=== PATIENT | female | born 2000 | race African-American/Black ===

== ENCOUNTER 2025-01-06 16:50 | Emergency (ER) | payer MEDICARE, SELFPAY ==
[2025-01-06 16:59] VITALS: BP 111/79; PULSE 99; RESP 20; TEMP 36.6; O2SAT 98; BMI 22.3
--- NOTE | 2025-01-06 17:08 | ED.GENADULT ---
HPI - General Adult General Chief complaint: Nausea/Vomiting Stated complaint: vomiting, nausea, was drinking last night Time Seen by Provider: 01/06/25 17:02 Source: patient Mode of arrival: ambulatory Limitations: no limitations History of Present Illness HPI narrative: 24-year-old female presenting today with nausea vomiting since this morning. Patient states that she did go drinking last night and have 3 shots [place]. She woke up feeling very nauseated this morning has been vomiting all day. No blood in her vomit. No diarrhea. She has abdominal cramping, no sharp pain. No difficulty with urination, has urinated less than usual. She denies fevers. She feels hungry and wants to eat but every time she puts anything close to her mouth, she vomits. Generally healthy. Does not take any medications. No known drug allergies. Related Data Home Medications ?Medication ?Instructions ?Recorded ?Confirmed No Known Home Medications 01/06/25 01/06/25 Allergies Allergy/AdvReac Type Severity Reaction Status Date / Time No Known Drug Allergies Allergy Verified 01/06/25 17:03 Review of Systems Status of ROS: Reports: 10 or more systems reviewed and unremarkable except as noted in History and below Exam Narrative: Exam Narrative: Well-nourished well-developed patient in no acute distress. Alert and oriented. Answers questions appropriately. Mood and affect are appropriate. Thoughts are goal oriented and rational. No tangential or magical thinking noted. Patient speaks in full sentences without needing to catch her breath. HEENT: Normocephalic atraumatic. Pupils are equally round reactive to light. Extraocular muscles are intact. Conjunctivae are moist without any icterus noted. Moist mucous membranes. Posterior pharynx is normal. Cardiovascular: Heart is regular rate and rhythm S1 and S2 are present without any murmurs. Lungs: Clear to auscultation bilaterally no wheezes rhonchi or rales are appreciated. Patient takes deep breaths without any discomfort. Abdomen: Soft and nontender nondistended with normal bowel sounds. No guarding or rebound. Skin: Well perfused without any obvious rashes. Const: Vital Signs, click to edit/add: Vital Signs - 24 hr 01/06/25 16:59 Temperature 97.8 F Pulse Rate [Pulse Oximeter] 99 Respiratory Rate 20 Blood Pressure [Ri ght Upper Arm] 111/79 Pulse Oximetry 98 Oxygen Delivery Me thod Room Air Course Course ED Course: IV established and patient given a L of normal saline and IV Zofran. Patient felt better after treatment. Not have any more episodes of vomiting. Vital Signs Vital signs: Initial Vital Signs Temperature 97.8 F 01/06/25 16:59 Temperature Source Temporal Artery Scan 01/06/25 16:59 Pulse Rate 99 01/06/25 16:59 Pulse Rhythm Regular 01/06/25 16:59 Respiratory Rate 20 01/06/25 16:59 Blood Pressure 111/79 01/06/25 16:59 Blood Pressure Mean 89 01/06/25 16:59 Blood Pressure Position Sitting 01/06/25 16:59 Pulse Oximetry 98 01/06/25 16:59 Oxygen Delivery Method Room Air 01/06/25 16:59 Vital Signs Temperature 97.8 F 01/06/25 16:59 Pulse Rate 99 01/06/25 16:59 Respiratory Rate 20 01/06/25 16:59 Blood Pressure 111/79 01/06/25 16:59 Pulse Oximetry 98 01/06/25 16:59 Oxygen Delivery Method Room Air 01/06/25 16:59 Temperature 97.8 F 01/06/25 16:59 Pulse Rate 99 01/06/25 16:59 Respiratory Rate 20 01/06/25 16:59 Blood Pressure 111/79 01/06/25 16:59 Pulse Oximetry 98 01/06/25 16:59 Oxygen Delivery Method Room Air 01/06/25 16:59 Medications Administered Medications: Discontinued Medications Generic Name Dose Route Start Last Admin Trade Name Freq PRN Reason Stop Dose Admin Sodium Chloride 1,000 mls @ 1,000 mls/hr 01/06/25 17:15 01/06/25 17:16 0.9 % Sodium Chloride 1000 Ml IV 01/06/25 18:14 1,000 mls/hr .Q1H CHE Administration Ondansetron HCl 4 mg 01/06/25 17:04 01/06/25 17:16 Ondansetron 2 Mg/Ml Inj IVP 01/06/25 17:05 4 mg ONCE ONE Administration Medical Decision Making MDM Narrative Medical decision making narrative: 24-year-old female presenting with vesalgia. Better after treatment. Discharge Plan Discharge Clinical Impression: Vomiting Patient Disposition: Home, Self-Care Condition: Stable Additional Instructions: Do your best to stay well hydrated by drinking small amounts of fluid frequently throughout the evening. Recommend abstaining from alcohol use. Prescriptions: No Action No Known Home Medications Stand Alone Forms: [employer] Info Instructions
[2025-01-06] MEDS: ONDANSETRON 2 MG/ML inj 4 MG IVP (17:16)
--- OUTSIDE RECORDS SUMMARY | 2025-01-06 17:45 | XMS_ITS | Encounter Summary ---
Author Organization [employer] Address [address] [place] [address] Care Team Providers Care Hide Measuring Machine Operator Name Role Phone Unknown, Provider Primary Care Provider Unavaila Makayla Jaimes MD Primary Care Provider U Ana Cristina Woodall MD Primary Care Provider Simona Hinojosa MD Primary Care Prov ider Unknown, Provider Unavailable Unavailable Encounter Details Date Type Department Care Team (Late st Contact Info) Description 11/12/2013 Historical Conversion [facility] [address] [facility] [place] [place] [phone] Makayla Buckner MD Social History Tobacco Use Types Packs/Day Years Used Date Smoking Tobacco: Never Assessed Comments Unknown Sex and Gender Information Value Date Recorded Sex Assigned at Not on file Legal Sex Female 4:10 PM OVEN LABORER Gender Identity Not on file Sexual Orientation Not on file documented as of this encounter Progress Notes * Makayla Buckner MD - 11/12/2013 12:00 AM CDT Chief Complaint/Reason for Visit Well adolescent visit. HISTORY OF PRESENT ILLNESS: Jodie is a 13-year-old who is brought to clinic today by her mom for a well adolescent visit. Mom tells me that things are going well. Mom tells me that Jodie is tired allthe time and she thinks she is too skinny. Mom also reports that Jodie's hair falls out and her skin is dry. Mom would like me to check her vitamin D level, an H- Pylori test, and a tuberculosis test. Jodie denies any heat or cold intolerance. Mom tells me that Jodie complains of nausea and abdominal pain. Jodie tells me she started her menstrual cycle in the middle of August. She tells me that she thinks her periods are regular. I explained to mom that hair loss, poor appetite, and dry skin can be related to thyroid problems. Mom tells me that often when she calls to get an appointment with me, they tell her I have no openings. I explained to mom that I try to have 30 minutes in the morningand 30 minutes in the afternoon open for same day appointments. Jodie reports that her nasal congestion is better with the nasal spray. I did explain to mom that this is a fairly new thing. Jodie has a lot of cerumen in her ears. I am able to move some of this on the right to visualize the tympanicmembrane. Jodie has pain with palpation in the center of her abdomen. Jodie's growth curve was reviewed. Jodie denies thinking that she weighs too much or is doing anything to lose weight. For further details of the visit, please see the well adolescent form in the patient's chart. MEDICATIONS: Fluticasone Propionate 50 MCG/ACT Nasal Suspension. Use 1 spray in each nostril once daily. Past Medical History 1. History of Abdominal tenderness (789.60) (R10.819) 2. History of Appetite lost (783.0) (R63.0) 3. History of abnormal weight loss (V13.89) (Z87.898) 4. Tension type headache (339.10) (G44.209) Allergies 1. No Known Drug Allergies Social History 1. Never smoked Vitals Vital Signs [Data Includes: Current Encounter] Recorded by : Kate Crespo at [id number] 02:42PM Recorded by : Ellie Caballero at [id number] 02:42PM Blood Pressure 103 / 70 Heart Rate 87 Respiration 12 Temperature 98.1 F Height 159.7 cm 2-20 Stature Percentile 37 % Weight 45.1 kg 2-20 Weight Percentile 19 % BMI Calculated 17.68 BMI Percentile 19 % BSA Calculated 1.43 Vision R20/40 and L20/40 without lenses Hearing Right: Pass ; Left: Pass Assessment 1. Fatigue (780.79) (R53.83) 2. Well child visit (V20.2) (Z00.129) Plan 1. Drawing Fee Status: Complete Done: [id number] 2. H Pylori - Stool Status: Hold For - Manual Activation Requested for: 12Nov2013 3. Administered: HPV (Gardasil) 4. Administered: PPD 5. Renew: Fluticasone Propionate 50 MCG/ACT Nasal Suspension (Flonase 50 MCG/ACT Nasal Suspension); USE 1 SPRAY IN EACH NOSTRIL ONCE DAILY We will check labs today including a Vitamin D level, hemoglobin, thyroid, tuberculosis, and H- pylori test. We will contact the family when we have the results of these labs. Jodie will receive the HPV immunization and possible side effects of this was discussed. I also sent refills of the nasal spray to the pharmacy per the family's request. Jodie failed her vision test and mom says she will make an appointment with an eye doctor. We will plan to see Jodie back for her 14 year well child visit, or sooner if questions or concerns arise. Signatures I, Santos Horn, am serving as a scribe to document services personally performed by Makayla Buckner M.D., F.A.A.P based on my observation and the provider's statements. Electronically signed by : Makayla Buckner M.D.; Nov 22 2013 1:53PM documented in this encounter Miscellaneous Notes * Letter - Makayla Buckner MD - 07/15/2014 12:00 AM CDT I have noticed that the lab work that I had previously ordered for you has yet to be completed. In order to better serve your healthcare needs, I am requesting that you come into our Lab Department within the next two weeks to complete your lab work. If for some reason you are not able to complete your lab work within this time frame or if you have any questions, please give my office a call so we can make other accommodations for you. If you have had this lab work done within the last week, please disregard this letter. You are due for a Vitamin D, total at this time. Please call if you have any questions. Makayla Buckner MD [facility] Electronically signed by:NED HIGHTOWER Jul 15 2014 2:53PM OVEN LABORER * Letter - Makayla Buckner MD - 03/25/2014 12:00 AM CST I have noticed that the lab work that I had previously ordered for you has yet to be completed. In order to better serve your healthcare needs, I am requesting that you come into our Lab Department within the next two weeks to complete your lab work. If for some reason you are not able to complete your lab work within this time frame or if you have any questions, please give my office a call so we can make other accommodations for you. If you have had this lab work done within the last week, please disregard this letter. You are due for a Vit D, total 25OH at this time. Please call if you have any questions. Makayla Buckner MD [facility] Electronically signed by:RUEL GUTIERREZ Mar 25 2014 10:16AM OVEN LABORER * Letter - Makayla Buckner MD - 02/04/2014 12:00 AM CDT I have noticed that the lab work that I had previously ordered for you has yet to be completed. In order to better serve your healthcare needs, I am requesting that you come into our Lab Department within the next two weeks to complete your lab work. If for some reason you are not able to complete your lab work within this time frame or if you have any questions, please give my office a call so we can make other accommodations for you. If you have had this lab work done within the last week, please disregard this letter. You are due for a Vitamin D, total at this time. Please call if you have any questions. Makayla Buckner MD [facility] Electronically signed by:NED HIGHTOWER Feb 04 2014 9:41AM OVEN LABORER documented in this encounter Plan of Treatment Not on file documented as of this encounter Visit Diagnoses Not on filedocumented in this encounter Additional Health Concerns Infection Onset Date Last Indicated Resolved Time COVID-19 Rule Out 09/11/2024 09/11/2024 09/11/2024 9:11 PM CDT documented as of this encounter Care Teams Hide Measuring Machine Operator Relationship Specialty Start Date End Date Unknown, Provider . [place] [id number] PCP - General 12/30/16 09/13/18 Makayla Buckner MD . [place] [id number] PCP - General Pediatrics 09/14/18 12/14/20 Ana Cristina Fuentes MD [address] [place] [address] [address] [place] [id number] PCP - General Family Medicine 12/15/20 11/28/21 Simona Hinojosa MD [address] [facility] [place] [phone] PCP - General Family Medicine 11/29/21 Unknown, Provider . [place] [id number] 09/14/18 documented as of this encounter Additional Source Comments PLEASE NOTE: Replies to this message will not be received.[facility] and [facility]
--- OUTSIDE RECORDS SUMMARY | 2025-01-06 17:45 | XMS_ITS | Referral Summary ---
Author Organization [facility] Address [address] [place] [address] Care Team Providers Care Supervisor Accounting Clerks Name Role Phone Simona Hinojosa MD Primary Care Prov ider Unknown, Provider Unavailable Unavailable Encounters Date Type Department Care Team Description 10/15/2024 Patient Message [facility] [address] [place] [address]. [place], [place] [phone] Michael Rodriguez MD Subj: Checking in from Last 3 Months Allergies No known active allergies Medications naproxen (NAPROSYN) 500 mg oral TabletIndication s:Dental disorder Take 1 tablet twice daily x1 week, then 1 tablet twice daily as needed for pain. 30 Tablet 02/09/2024 Active Active Problems Problem Noted Date Diagnosed Date Seasonal allergies Lactose intolerance Anxiety Immunizations Immunization Administration Dates Next Due DTaP Vac, <7 Yrs, IM (Daptacel,Infanrix,Tripedia) 11/29/2003,07/31/2000,06/25/1999,03/14,01/04/1999 Hemophilus Influenza B - Unspecified 03/14/1999, 01/04/1999 Hepatitis A Vaccine, IM, Ped /Adol (2 doses) 07/24/2010,06/24/2008 Hepatitis B Vaccine - Unspecified 07/31/2000,02/1999,01/04/1999 Hepatitis B Vaccine, IM, Ped /Adol (3 doses) (Recombivax) (Engerix-B) 07/31/2000,03/14/1999,01/04/1999 Human Papilloma Virus Vaccin e(Gardasil 9) 11/06/2017,11/22/2016 Human Papilloma Virus Vaccine(Gardasil) 11/12/2013 Influenza Vac, H1N1 05/11/2009 Influenza Vac, IM, Quadrivalent 02/01/2022,04/17,02/22/2014 Influenza Vac, IM, Quadrival ent Preserv Free, (>6 months) 01/30/2021,04/17/2020,05/02/2019 Influenza Vac, IM, Trivalent (>3 Yrs) 03/18/2012 ,02/28/2010,01/21/2009 Influenza Vac, Intranasal, Quadrivalent (Flumist) 02/12/2013 Influenza Vac, Intranasal, T rivalent (Flumist) 03/18/2011 Influenza Virus Vaccine - Unspecified 04/17/2020 MMR Vaccine (Mumps, Measles, Rubella) SQ 11/29/2003,07/31/2000 Meningococcal B Vac, Recombi nant, OMV, IM (Bexsero) 05/02/2020 Meningococcal Conj Vac,Tetra valent, IM (Menactra) 11/22/2016,07/24/2010 Poliovirus Vaccine, IM or SQ (IPV) 04/17,11/29/2003,07/31/2000,03/14,01/04/1999 SARS-CoV-2, IM (COVID-19)(Pfizer)(Purple Label) 12/27/2020,12/06/2020 Tdap Vaccine, IM, (Adacel)(Boostrix) 11/25/2019, 07/24/2010 Tuberculosis (TB) Intradermal Test 05/08/2021, Typhoid Vaccine, IM (ViCPs)(Typhim ) 7 Varicella Vaccine, SQ (Varivax) 12/19/2010,07/24 Social History Tobacco Use Types Packs/Day Years Used Date Smoking Tobacco: Never Smokeless Tobacco: Never Alcohol Use Standard Drinks/Week Comments Never 0 (1 standard drink = 0.6 oz pur e alcohol) Humiliation, Afraid, Rape, and Kick questionnair e Answer Date Recorded Within the last year, have y ou been afraid of your partner or ex-partner? No 11/29/2021 Within the last year, have y ou been humiliated or emotionally abused in other ways by your partner or ex-partner? No Within the last year, have y ou been kicked, hit, slapped, or otherwise physically hurt by your partner or ex-partner? No 11/29/2021 Within the last year, have y ou been raped or forced to have any kind of sexual activity by your partner or ex-partner? No 11/29/2021 Social Connection and Isolat ion Panel [NHANES] Answer Date Recorded In a typical week, how many times do you talk on the phone with family, friends, or neighbors? More than three times a week 11/29/2021 How often do you get togethe r with friends or relatives? Three times a week 11/29/2021 How often do you attend chur or judaism services? 1 to 4 times per year 11/29/2021 Do you belong to any clubs o r organizations such as nondenominational groups, unions, fraternal or athletic groups, or school groups? Yes 11/29/2021 How often do you attend meet ings of the clubs or organizations you belong to? 1 to 4 times per year 11/29/2021 Are you , , di vorced, , never , or living with a partner? Never 11/29/2021 AUDIT-C Answer Date Recorded Q1: How often do you have a drink containing alcohol? Never 11/29/2021 Q2: How many drinks containi ng alcohol do you have on a typical day when you are drinking? Patient does not drink Q3: How often do you have si x or more drinks on one occasion? Never 11/29/2021 Overall Financial Resource Strain (CARDIA) Answe r Date Recorded How hard is it for you to pa y for the very basics like food, housing, medical care, and heating? Not hard at all 11/29/2021 [facility] [place] [facility] Occupat ional Health - Occupational Stress Questionnaire Answer Date Recorded Do you feel stress - tense, restless, nervous, or anxious, or unable to sleep at night because your mind is troubled all the time - these days? Only a little 11/29/2021 Exercise Vital Sign Answer Date Recorde d On average, how many days pe r week do you engage in moderate to strenuous exercise (like a brisk walk)? 1 day 11/29/2021 On average, how many minutes do you engage in exercise at this level? 20 min 11/29/2021 Hunger Vital Sign Answer Date Recorded Within the past 12 months, y ou worried that your food would run out before you got the money to buy more. Never true 11/30/19 22 Within the past 12 months, t he food you bought just didn't last and you didn't have money to get more. Never true 11/29/2021 PRAPARE - Transportation Answer Date Re corded In the past 12 months, has l ack of transportation kept you from medical appointments or from getting medications? No 11/03 In the past 12 months, has l ack of transportation kept you from meetings, work, or from getting things needed for daily living? No 11/29/2021 Housing Stability Answer Date Recorded In the last 12 months, was t here a time when you were not able to pay the mortgage or rent on time? No 11/29/2021 In the last 12 months, how many places have you lived? 1 11/29/2021 Number of Places Lived in the Last Year (Outpati ent) Not on file 11/29/2021 In the last 12 months, was t here a time when you did not have a steady place to sleep or slept in a care home (including now)? No 11/29/2021 Depression (PHQ-9) Answer Date Recorded Last PHQ-9 Score Not on file 2023 Thoughts of self harm Not at all 2023 Intimate Partner Violence Answer Date R ecorded Are you in a relationship wh ere you are physically hurt, threatened and/or made to feel afraid? No 09/11/2024 Comments No Sex and Gender Information Value Date Recorded Sex Assigned at Not on file Legal Sex Female 4:10 PM PUBLIC RELATIONS COUNSELOR Gender Identity Not on file Sexual Orientation Not on file Last Filed Vital Signs Vital Sign Reading Time Taken Comments Blood Pressure 121/87 09/11/2024 10:00 PM CDT Pulse 90 09/11/2024 10:00 PM CDT Temperature 36.2 C (97.1 F) 09/11/2024 8:27 PM CDT Respiratory Rate 18 09/11/2024 10:00 PM CDT Oxygen Saturation 99% 09/11/2024 10:00 PM CDT Inhaled Oxygen Concentration - - Weight 56.9 kg (125 lb 7.1 oz) 09/11/2024 8:27 P M CDT Height 159.6 cm (5' 2.84) 11/29/2021 11:58 AM C DT Body Mass Index 22.34 11/29/2021 11:58 AM CDT Functional Status * Are you deaf or do you have serious difficulty hearing? Answer Date of Assessment Author No 05/02/2019 5:42 PM Ciaran Ya RN * Are you blind or do you have serious difficulty seeing, even when wearing glasses? Answer Date of Assessment Author No 05/02/2019 5:42 PM Ciaran Ya RN * Do you have serious difficulty walking or climbing stairs? Answer Date of Assessment Author No 05/02/2019 5:42 PM Ciaran Ya RN * Do you have difficulty dressing or bathing? Answer Date of Assessment Author No 05/02/2019 5:42 PM Ciaran Ya RN * Do you have difficulty doing errands alone such as visiting a doctor's office or shopping because of a physical, mental, or emotional condition? Answer Date of Assessment Author No 05/02/2019 5:42 PM Ciaran Ya RN Mental Status * Do you have trouble concentrating, remembering, or making decisions because of a physical, mental, or emotional condition? Answer Entry Date Author No 05/02/2019 5:42 PM Ciaran Ya RN Plan of Treatment Not on file Procedures Procedure Name Priority Date/Time Associated Diagnosis Comments HIV-1 AND HIV-2 AG AND AB Routine 05/02/2020 4:01 PM PUBLIC RELATIONS COUNSELOR Routine history and physical examination of adult from Last 3 Months or Most Recently Relevant to Health Maintenance Results * HIV-1 AND HIV-2 AG AND AB (05/02/2020 4:01 PM PUBLIC RELATIONS COUNSELOR) HIV 1/2 Ab/Ag Nonreactive Nonreactive 0 4:48 [address] [facility] Comment:No laboratory eviden ce of HIV infection. If acute HIV infection is suspected consider testing for HIV-1 RNA. Blood VENOUS BLOOD SPECIMEN / Unknown Venipuncture / Unknown 05/02/2020 4:01 PM PUBLIC RELATIONS COUNSELOR 05/02/2020 4:02 PM PUBLIC RELATIONS COUNSELOR Makayla Buckner MD LAB SEROLOGY ORDERABLES Final Result [facility] [address] [id number], [place] [phone] from Last 3 Months or Most Recently Relevant to Health Maintenance Insurance [place] [address] Care Teams Supervisor Accounting Clerks Relationship Specialty Start Date End Date Simona Hinojosa MD [address] [place] [id number] PCP - General Family Medicine 11/29/21 Unknown, Provider . [place] [id number] 09/14/18 Additional Source Comments PLEASE NOTE: Replies to this message will not be received.[facility] and [facility]
--- OUTSIDE RECORDS SUMMARY | 2025-01-06 17:45 | XMS_ITS | Encounter Summary ---
Author Organization [employer] Address [address] [place] [address] Care Team Providers Care Coating Line Worker Name Role Phone Unknown, Provider Primary Care Provider UnavailMakayla Staley MD Primary Care Provider U Ana Cristina Woodall MD Primary Care Provider Simona Hinojosa MD Primary Care Prov ider Unknown, Provider Unavailable Unavailable Encounter Details Date Type Department Care Team (Late st Contact Info) Description 05/03/2018 Historical Conversion [facility] Family Medicine [address] [place] [address]. [facility] [place], [place] [phone] Lance Grullon MD Social History Tobacco Use Types Packs/Day Years Used Date Smoking Tobacco: Never Assessed Comments Unknown Sex and Gender Information Value Date Recorded Sex Assigned at Not on file Legal Sex Female 4:10 PM DOLL EYE SETTER Gender Identity Not on file Sexual Orientation Not on file documented as of this encounter Last Filed Vital Signs Vital Sign Reading Time Taken Comments Blood Pressure 133/98 05/03/2018 12:00 AM DOLL EYE SETTER Pulse - - Temperature - - Respiratory Rate - - Oxygen Saturation - - Inhaled Oxygen Concentration - - Weight 46 kg (101 lb 6.6 oz) 05/03/2018 12:00 AM DOLL EYE SETTER Height - - Body Mass Index 17.83 11/06/2017 12:00 AM CDT documented in this encounter Progress Notes * Lance Grullon MD - 05/03/2018 12:00 AM CST URGENT CARE ZHAO MYERS : 2000 HX: [id number] DOS: 05/03/2018 SUBJECTIVE: This is a 17-year-old female who presents to the Urgent Care clinic for an earache. Herright ear has been hurting for the last two days. No discharge or drainage. No symptoms in the leftear. No fevers, cough, nasal congestion or sore throat. OBJECTIVE: Vital Signs: Vital signs reviewed in Allscripts. Please see vitals tab for details. Stable. Patientis afebrile. General: The patient is alert, awake and oriented x three. No acute distress. HEENT: Head: Normocephalic and atraumatic. Eyes: PERRLA. EOMI x two. Ears: Tympanic membranes are bills and flat. The right external canal is erythematous. Oropharynx: Clear. Respiratory: Clear to auscultation bilaterally. ASSESSMENT: 1. Right acute otitis externa. PLAN: 1. Floxin Otic drops 10 drops twice a day for seven days. 2. Follow up with primary p.r.n. Lance Grullon M.D./[id number] Electronically signed by:Lance Grullon M.D. May 06 2018 8:16PM DOLL EYE SETTER Author documented in this encounter Plan of Treatment Not on file documented as of this encounter Visit Diagnoses Not on filedocumented in this encounter Additional Health Concerns Infection Onset Date Last Indicated Resolved Time COVID-19 Rule Out 09/11/2024 09/11/2024 09/11/2024 9:11 PM CDT documented as of this encounter Care Teams Coating Line Worker Relationship Specialty Start Date End Date Unknown, Provider . [place] [address] PCP - General 12/30/16 09/13/18 Makayla Buckner MD . [place] [address] PCP - General Pediatrics 09/14/18 12/14/20 Ana Cristina Fuentes MD [address] [place] [address] 1 [facility] [phone] PCP - General Family Medicine 12/15/20 11/28/21 Simona Hinojosa MD [address] [facility] [phone] PCP - General Family Medicine 11/29/21 Unknown, Provider . [place] [address] 09/14/18 documented as of this encounter Additional Source Comments PLEASE NOTE: Replies to this message will not be received.[facility] and [facility]
--- OUTSIDE RECORDS SUMMARY | 2025-01-06 17:45 | XMS_ITS | Encounter Summary ---
Author Organization [employer] Address [address] [place] [address] Care Team Providers Care Gis Software Engineer Name Role Phone Unknown, Provider Primary Care Provider UnavailMakayla Staley MD Primary Care Provider U Ana Cristina Woodall MD Primary Care Provider Simona Hinojosa MD Primary Care Prov ider Unknown, Provider Unavailable Unavailable Encounter Details Date Type Department Care Team (Late st Contact Info) Description 12/09/2013 Historical Conversion [facility] Family Medicine [address] [place] [address]. [facility] [place], [place] [phone] Tashi Woodson MD Social History Tobacco Use Types Packs/Day Years Used Date Smoking Tobacco: Never Assessed Comments Unknown Sex and Gender Information Value Date Recorded Sex Assigned at Not on file Legal Sex Female 4:10 PM MANAGEMENT DEVELOPMENT SPECIALIST Gender Identity Not on file Sexual Orientation Not on file documented as of this encounter Last Filed Vital Signs Vital Sign Reading Time Taken Comments Blood Pressure 109/74 12/09/2013 12:00 AM CDT Pulse - - Temperature - - Respiratory Rate - - Oxygen Saturation - - Inhaled Oxygen Concentration - - Weight 45.8 kg (100 lb 15.9 oz) 014 12:00 AM CDT Height 159.4 cm (5' 2.75) 12/09/2013 1 2:00 AM CDT Body Mass Index 18.03 12/09/2013 12:00 AM CDT Body Mass Index Percentile 22.72% 12/09 12:00 AM CDT Growth Chart: [facility] (Girls, 2- 20 Years) documented in this encounter Progress Notes * Tashi Woodson MD - 12/09/2013 12:00 AM CDT URGENT CARE ZHAO MYERS : 2000 HX: [id number] DOS: 12/09/2013 Patient seen in Urgent Care with a lot of nasal congestion and stuffiness. She states she has had some postnasal drainage. Nose discharge has been progressively green also. She comes in to Urgent Care for evaluation. PAST MEDICAL HISTORY: No medication allergies. REVIEW OF SYSTEMS: Positive for congestion and stuffiness. Negative for any fever, chills, or cough. EXAMINATION: Vital signs reviewed in Allscripts. Please see vitals tab for details. Afebrile. Thereis a lot of nasal congestion. There is some mucopurulence. TM's look fairly normal. Neck is supple and lungs are clear. ASSESSMENT: Sinusitis with rhinitis. PLAN: Put on a course of Amoxicillin and also given some Flonase and Krista to use for her allergies. She will be rechecked as needed. TASHI WOODSON M.D./[facility] 09 Electronically signed by:TASHI WOODSON M.D. Dec 14 2013 11:14AM MANAGEMENT DEVELOPMENT SPECIALIST documented in this encounter Plan of Treatment Not on file documented as of this encounter Visit Diagnoses Not on filedocumented in this encounter Additional Health Concerns Infection Onset Date Last Indicated Resolved Time COVID-19 Rule Out 09/11/2024 09/11/2024 09/11/2024 9:11 PM CDT documented as of this encounter Care Teams Gis Software Engineer Relationship Specialty Start Date End Date Unknown, Provider . [place] [address] PCP - General 12/30/16 09/13/18 Makayla Buckner MD . [place] [address] PCP - General Pediatrics 09/14/18 12/14/20 Ana Cristina Fuentes MD [address] [place] [address] [address] [facility] [phone] PCP - General Family Medicine 12/15/20 11/28/21 Simona Hinojosa MD [address] [facility] [phone] PCP - General Family Medicine 11/29/21 Unknown, Provider . [place] [address] 09/14/18 documented as of this encounter Additional Source Comments PLEASE NOTE: Replies to this message will not be received.[facility] and [facility]
--- OUTSIDE RECORDS SUMMARY | 2025-01-06 17:45 | XMS_ITS | Encounter Summary ---
Author Organization [employer] Address [address] [place] [address] Care Team Providers Care Media Relations Specialist Name Role Phone Unknown, Provider Primary Care Provider UnavailMakayla Staley MD Primary Care Provider U Ana Cristina Woodall MD Primary Care Provider Simona Hinojosa MD Primary Care Prov ider Unknown, Provider Unavailable Unavailable Encounter Details Date Type Department Care Team (Late st Contact Info) Description 09/18/2017 Historical Conversion [facility] Family Medicine [address] [facility] [place] [place], [place] [phone] Carmelita Sin, UTILITY AGENT,FORMULA CHECKER [address] [place] [phone] Social History Tobacco Use Types Packs/Day Years Used Date Smoking Tobacco: Never Assessed Comments Unknown Sex and Gender Information Value Date Recorded Sex Assigned at Not on file Legal Sex Female 4:10 PM CLIENT DELIVERY SPECIALIST Gender Identity Not on file Sexual Orientation Not on file documented as of this encounter Last Filed Vital Signs Vital Sign Reading Time Taken Comments Blood Pressure 109/77 09/18/2017 12:00 AM CDT Pulse - - Temperature - - Respiratory Rate - - Oxygen Saturation - - Inhaled Oxygen Concentration - - Weight 47.3 kg (104 lb 2.7 oz) 09/19/19 12:00 AM CDT Height - - Body Mass Index 18.12 07/10/2017 12:00 AM CLIENT DELIVERY SPECIALIST Body Mass Index Percentile 7.73% 09/18 12:00 AM CDT Growth Chart: [facility] (Girls, 2- 20 Years) documented in this encounter Progress Notes * Carmelita Hunter - 09/18/2017 12:00 AM CDT URGENT CARE ZHAO MYERS : 2000 HX: [id number] DOS: 09/18/2017 16 year old female patient of Dr. Buckner who presents to today with chief complaint of some epigastric discomfort, decline in appetite, nausea over the last several days. Patient notes no constipation, diarrhea, blood in the stool, black tarry stools. No fever, chills, malaise, diaphoresis. She has not utilized any over the counter medications or home remedies for relief of symptoms. Allergies: NKDA SOCIAL HISTORY: Non-smoker. Objective: Vital signs reviewed in Allscripts. Please see vital tab for details. Weight 47. BP 109/77. Pulse, 100. Respirations, 16. Temp 98.6. O2 100% on RA. Pleasant, cooperative female, appears in no acute distress. She is alert and oriented. Head is atraumatic, normocephalic. Eyes, lids, sclera, conjunctiva appears normal limits. Oropharynx, pink and moist. Neck, supple without lymphadenopathy. Chest is clear to auscultation, anterior and posterior bi laterally. Cardiovascular, regular rhythm, normal rate, normal S1 S2. Abdomen, soft, she has epigastric discomfort without organomegaly, masses, rebound, or guarding. Bowel sounds present x4. H pylori breath test is positive. ASSESSMENT: 1. Helicobacter pylori PLAN: Patient is given Prevpac. Encouraged to complete full medication to ensure resolution. Advise if symptoms worsen, do not resolve, or new symptoms arise she is to seek medical care. She verbalized understanding and agreement with plan. Carmelita Hunter RN, FORMULA CHECKER/akg-18 Electronically signed by:Carmelita Hunter RN,FORMULA CHECKER, Sep 22 2017 7:24AM CLIENT DELIVERY SPECIALIST * Carmelita Sin, UTILITY AGENT,FORMULA CHECKER - 09/18/2017 12:00 AM CDT URGENT CARE ZHAO MYRES : 2000 HX: [id number] DOS: 09/18/2017 16 year old female patient of Dr. Buckner who presents to today with chief complaint of some epigastric discomfort, decline in appetite, nausea over the last several days. Patient notes no constipation, diarrhea, blood in the stool, black tarry stools. No fever, chills, malaise, diaphoresis. She has not utilized any over the counter medications or home remedies for relief of symptoms. Allergies: NKDA SOCIAL HISTORY: Non-smoker. Objective: Vital signs reviewed in Allscripts. Please see vital tab for details. Weight 47. BP 109/77. Pulse, 100. Respirations, 16. Temp 98.6. O2 100% on RA. Pleasant, cooperative female, appears in no acute distress. She is alert and oriented. Head is atraumatic, normocephalic. Eyes, lids, sclera, conjunctiva appears normal limits. Oropharynx, pink and moist. Neck, supple without lymphadenopathy. Chest is clear to auscultation, anterior and posterior bi laterally. Cardiovascular, regular rhythm, normal rate, normal S1 S2. Abdomen, soft, she has epigastric discomfort without organomegaly, masses, rebound, or guarding. Bowel sounds present x4. H pylori breath test is positive. ASSESSMENT: 1. Helicobacter pylori PLAN: Patient is given Prevpac. Encouraged to complete full medication to ensure resolution. Advise if symptoms worsen, do not resolve, or new symptoms arise she is to seek medical care. She verbalized understanding and agreement with plan. Carmelita Hunter RN, FORMULA CHECKER/akg-18 Electronically signed by:Carmelita Hunter RN,FORMULA CHECKER, Sep 22 2017 7:24AM CLIENT DELIVERY SPECIALIST Electronically signed by:Jaswinder Sanchez M.D. Sep 29 2018 10:30PM CLIENT DELIVERY SPECIALIST documented in this encounter Plan of Treatment Not on file documented as of this encounter Visit Diagnoses Not on filedocumented in this encounter Additional Health Concerns Infection Onset Date Last Indicated Resolved Time COVID-19 Rule Out 09/11/2024 09/11/2024 09/11/2024 9:11 PM CDT documented as of this encounter Care Teams Media Relations Specialist Relationship Specialty Start Date End Date Unknown, Provider . [place] [id number] PCP - General 12/30/16 09/13/18 Makayla Buckner MD . [place] [address] PCP - General Pediatrics 09/14/18 12/14/20 Ana Cristina Fuentes MD [address] [place] [address] [address] [facility] [phone] PCP - General Family Medicine 12/15/20 11/28/21 Simona Hinojosa MD [address] [place] [address] [facility] [phone] PCP - General Family Medicine 11/29/21 Unknown, Provider . [place] [address] 09/14/18 documented as of this encounter Additional Source Comments PLEASE NOTE: Replies to this message will not be received.[facility] and [facility]
--- OUTSIDE RECORDS SUMMARY | 2025-01-06 17:45 | XMS_ITS | Encounter Summary ---
Author Organization [employer] Address [address] [place] [address] Care Team Providers Care Control Clerk Auditing Name Role Phone Unknown, Provider Primary Care Provider Unavaila Makayla Jaimes MD Primary Care Provider U Ana Cristina Woodall MD Primary Care Provider Simona Hinojosa MD Primary Care Prov ider Unknown, Provider Unavailable Unavailable Encounter Details Date Type Department Care Team (Late st Contact Info) Description 07/10/2017 Historical Conversion [facility] Family Medicine [address] [place] [address]. [facility] [place], [place] [phone] Makayla Buckner MD Social History Tobacco Use Types Packs/Day Years Used Date Smoking Tobacco: Never Assessed Comments Unknown Sex and Gender Information Value Date Recorded Sex Assigned at Not on file Legal Sex Female 4:10 PM PARENTING SKILLS INSTRUCTOR Gender Identity Not on file Sexual Orientation Not on file documented as of this encounter Progress Notes * Makayla Buckner MD - 07/10/2017 12:00 AM CST Assessment 1. Lactose intolerance (271.3) (E73.9) Plan We will send a prescription for lactase. Soy milk would be an option. She should continue to take calcium and vitamin D, continue with calcium rich foods. Plan Orders Lactose intolerance Lactase Fast Acting 9000 UNIT Oral Tablet; TAKE 1 TABLET WITH FIRST BITE OF DAIRY FOOD Unlinked Fluticasone Propionate 50 MCG/ACT Nasal Suspension (Flonase) Multi-Vitamin/Iron Oral Tablet Vitron-C 65-125 MG Oral Tablet Counseling Total time of encounter was 15 minutes and 15 minutes was spent counseling and coordination of care. Reason For Visit Lactose intolerant History of Present Illness Jodie is an 16-year-old female who presents with questions regarding her lactose intolerance. She was diagnosed with lactose intolerance in December 2016. She is currently a college student. She likes being away at school, but she talks to her mom almost every day. She lives on campus in the dorm. She does have a fridge in her dorm room. She does eat at school, but Jodie says she does not eat a lotbecause she does not feel she has a lot of options being lactose intolerant. She did try some Lactaid pills. She felt they worked initially, but did not continue to. She only took one pill at a time.Her mom wanted her to ask again about Lactaid pills and her options. has tried eating some lactose, but that does not go so well. Cheese bothers her. She eats salads. takes vitamin D. She has seen a dietitian who suggested fruits and vegetables that contain calcium. has otherwise been well. Current Meds 1. Alyacen 1-35 MG-MCG Oral Tablet; TAKE ONE TABLET BY MOUTH EVERY DAY DIRECTED; Therapy: 50Isv0011 to (Last Rx:[id number]) Requested for: 51Ifh1133 Ordered 2. Fluticasone Propionate 50 MCG/ACT Nasal Suspension; USE 2 SPRAYS IN EACH NOSTRIL ONCE DAILY; Therapy: 21Geb5214 to (Last Rx:25Mar2017) Requested for: 25Mar2017 Ordered 3. Multi-Vitamin/Iron Oral Tablet; TAKE 1 TABLET ONCE DAILY; Therapy: 66Zdr4656 to (Evaluate:07Sep2016) Requested for: 54Bkr5287; Last Rx:[id number] Ordered 4. Vitamin D (Ergocalciferol) 06904 UNIT Oral Capsule; TAKE ONE CAPSULE EVERY OTHER WEEK FOR 3 MONTHS; Therapy: 39Ksy7553 to (Evaluate:01Aug2017) Requested for: 09May2017; Last Rx:09May2017 Ordered 5. Vitron-C 65-125 MG Oral Tablet; TAKE 1 TABLET TWICE DAILY; Therapy: 69Frt2726 to (Evaluate:26May2017) Requested for: 55Vfh7880; Last Rx:[id number] Ordered Allergies 1. No Known Drug Allergies Vitals Vital Signs Recorded: 10Jul2017 02:54PM Systolic 117 Diastolic 78 Heart Rate 116 Respiration 20 Temperature 97.9 F Height 161.5 cm Weight 52.8 kg BMI Calculated 20.24 BSA Calculated 1.55 BMI Percentile 34 % 2-20 Stature Percentile 40 % 2-20 Weight Percentile 31 % Signatures Nancie Marie, P.D.S., am serving as a scribe to document services personally performed by Makayla Buckner M.D., F.A.A.P based on my observation and the provider's statements. Electronically signed by : Makayla Buckner M.D.; Jan 22 2018 8:53AM PARENTING SKILLS INSTRUCTOR documented in this encounter Plan of Treatment Not on file documented as of this encounter Visit Diagnoses Not on filedocumented in this encounter Additional Health Concerns Infection Onset Date Last Indicated Resolved Time COVID-19 Rule Out 09/11/2024 09/11/2024 09/11/2024 9:11 PM CDT documented as of this encounter Care Teams Control Clerk Auditing Relationship Specialty Start Date End Date Unknown, Provider . [place] [address] PCP - General 12/30/16 09/13/18 Makayla Buckner MD . [place] [address] PCP - General Pediatrics 09/14/18 12/14/20 Ana Cristina Fuentes MD [address] [facility] [address] [facility] [phone] PCP - General Family Medicine 12/15/20 11/28/21 Simona Hinojosa MD [address] [place] [address] [facility] [phone] PCP - General Family Medicine 11/29/21 Unknown, Provider . [place] [address] 09/14/18 documented as of this encounter Additional Source Comments PLEASE NOTE: Replies to this message will not be received.[facility] and [facility]
--- OUTSIDE RECORDS SUMMARY | 2025-01-06 17:45 | XMS_ITS | Encounter Summary ---
Author Organization [employer] Address [address] [place] [address] Care Team Providers Care Diet Kitchen Cook Name Role Phone Unknown, Provider Primary Care Provider UnavailMakayla Staley MD Primary Care Provider U Ana Cristina Woodall MD Primary Care Provider Simona Hinojosa MD Primary Care Prov ider Unknown, Provider Unavailable Unavailable Encounter Details Date Type Department Care Team (Late st Contact Info) Description 04/17/2017 Historical Conversion [facility] Family Medicine [address] [place] [address]. [place], [place] [phone] Social History Tobacco Use Types Packs/Day Years Used Date Smoking Tobacco: Never Assessed Comments Unknown Sex and Gender Information Value Date Recorded Sex Assigned at Not on file Legal Sex Female 4:10 PM SOCIAL PROFESSIONALS Gender Identity Not on file Sexual Orientation Not on file documented as of this encounter Nursing Notes * [facility], GENERICPROVIDER - 04/17/2017 12:00 AM CST Name: ZHAO MYERS : 2000 DOS: 04/17/2017 This patient will be traveling to [facility]. She states she will be gone for 2 weeks and will also be visiting family. She has completed her hepatitis A, hepatitis B, childhood IPV, varicella, MMR series. She is up-to-date on her Tdap. Last meningitis vaccine was 11/22/16. She has 2 document ed HPV and was instructed that she does need a third, but does not want to get it at this time. Therecommended travel immunizations were given according to CDC guidelines and the patient's health history and travel itinerary. She states she is lactose intolerant. Immunizations given were influenza, Typhium, and IPV. See immunization record in ALLscripts. Immunizations were given per standing orders of Dr. Powers. No malaria medication is needed for this trip. Teaching review/CDC guidelines andrecommendations were given. CDC handouts were provided to the patient. Patient was given documentation of her meningitis and IPV vaccine. Patient tolerated immunizations well. Electronically signed by:Salena Mares RN Apr 17 2017 3:17PM SOCIAL PROFESSIONALS documented in this encounter Plan of Treatment Not on file documented as of this encounter Visit Diagnoses Not on filedocumented in this encounter Additional Health Concerns Infection Onset Date Last Indicated Resolved Time COVID-19 Rule Out 09/11/2024 09/11/2024 09/11/2024 9:11 PM CDT documented as of this encounter Care Teams Diet Kitchen Cook Relationship Specialty Start Date End Date Unknown, Provider . [place] [address] PCP - General 12/30/16 09/13/18 Makayla Buckner MD . [place] [address] PCP - General Pediatrics 09/14/18 12/14/20 Ana Cristina Fuentes MD [address] [place] [address] [address] [facility] [phone] PCP - General Family Medicine 12/15/20 11/28/21 Simona Hinojosa MD [address] [place] [address] [facility] [phone] PCP - General Family Medicine 11/29/21 Unknown, Provider . [place] [facility] [address] 09/14/18 documented as of this encounter Additional Source Comments PLEASE NOTE: Replies to this message will not be received.[facility]
--- OUTSIDE RECORDS SUMMARY | 2025-01-06 17:45 | XMS_ITS | Clinical Summary ---
Author Organization [facility] Address [address] [place] [address] Care Team Providers Care Monitoring And Evaluation Advisor Name Role Phone Simona Hinojosa MD Primary Care Prov ider Unknown, Provider Unavailable Unavailable Allergies No known active allergies Medications naproxen (NAPROSYN) 500 mg oral TabletIndication s:Dental disorder Take 1 tablet twice daily x1 week, then 1 tablet twice daily as needed for pain. 30 Tablet 02/09/2024 Active Active Problems Problem Noted Date Diagnosed Date Seasonal allergies Lactose intolerance Anxiety Encounters Date Type Department Care Team Description 10/15/2024 Patient Message [facility] Family Medicine [address] [facility]. [place] [phone] Michael Rodriguez MD Subj: Checking in from Last 3 Months Immunizations Immunization Administration Dates Next Due DTaP [...] ) 7 Varicella Vaccine, SQ (Varivax) 12/19/2010,07/24 Family History Medical History Relation Name Comments No Known Problems Father No Known Problems Mother Relation Name Status Comments Father Alive Mother Alive Social History Tobacco Use Types Packs/Day Years [...] week 11/29/2021 How often do you attend [facility] or [facility] services? 1 to 4 times per year 11/29/2021 Do you belong to any clubs o r organizations such as religion groups, unions, fraternal or athletic groups, or [...] and heating? Not hard at all 11/29/2021 [facility] [place] [facility] - Occupational Stress [...] money to buy more. Never true 11/30/19 Within the past 12 months, t he [...] place to sleep or slept in a snf (including now)? No 11/29/2021 Depression (PHQ-9) Answer [...] on file Legal Sex Female 4:10 PM ALMOND PASTE MIXER Gender Identity Not on file Sexual Orientation [...] Mass Index 22.34 11/29/2021 11:58 AM CDT Plan of Treatment Health Maintenance Due Date Last Done Comments Depression Screening 2010 Cervical Cancer Screening 11/10/2019 Meningococcal B Vaccines (2 of 2 - Bexsero SCDM 2-dose series) 10/31/2020 05/02/2020 COVID-19 Vaccine (3 - season) 2025 12/27/2020, 12/06/2020 Influenza Vaccine (#1) 2025 2, 01/30/2021, 04/17/2020, Additional history exists DTaP/Tdap/Td Vaccines (8 - Td or Tdap) 11/24/2029 11/25/2019, 07/24/2010, 11/29/2003, Additional history exists Varicella Zoster Sequential (1 of 2) 2048 Respiratory Syncytial Virus (RSV) Vaccine (1 - 1-dose 75+ series) 2073 HIB Vaccines Aged Out 03/14/1999, 01/04/1999 No lo nger eligible based on patient's age to complete this topic Hepatitis B Vaccines Completed 07/31/2000, 07/31/2000, 03/14/1999, Additional history exists Hepatitis A Vaccines Completed 07/24/2010, 06/24/19 09 Meningococcal Vaccines Completed 11/22/2016, 2010 HPV Vaccines Completed 11/06/2017, 11/03, 11/12/2013 HIV Screen Completed 05/02/2020 Hepatitis C Testing Discontinued Pneumococcal Vaccine (0-49 Years) Aged Out No longer eligible based on patient's age to complete this topic Procedures Procedure Name Priority Date/Time Associated Diagnosis Comments HIV-1 AND HIV-2 AG AND AB Routine 05/02/2020 4:01 PM ALMOND PASTE MIXER Routine history and physical examination of adult from Last 3 Months or Most Recently Relevant to Health Maintenance Results * HIV-1 AND HIV-2 AG AND AB (05/02/2020 4:01 PM ALMOND PASTE MIXER) HIV 1/2 Ab/Ag Nonreactive Nonreactive 0 4:48 PM ALMOND PASTE MIXER [facility] Comment:No laboratory eviden ce of HIV infection. If acute HIV infection is suspected consider testing for HIV-1 RNA. Blood VENOUS BLOOD SPECIMEN / Unknown Venipuncture / Unknown 05/02/2020 4:01 PM ALMOND PASTE MIXER 05/02/2020 4:02 PM ALMOND PASTE MIXER us Makayla Buckner MD LAB SEROLOGY ORDERABLES Final Result [facility] [address] [place] [address], from Last 3 Months or Most Recently Relevant to Health Maintenance Insurance [place] [address] * Guarantor: [employer] Account Type Relation to Patient Date of Phone Billing Address Corporate Other [address] [facility] [place] [address] Care Teams Monitoring And Evaluation Advisor Relationship Specialty Start Date End Date Simona Hinojosa MD [address] [place] [id number] PCP - General Family Medicine 11/29/21 Unknown, Provider . [place] [id number] 09/14/18 Additional Source Comments PLEASE NOTE: Replies to this message will not be received.[facility]
--- OUTSIDE RECORDS SUMMARY | 2025-01-06 17:45 | XMS_ITS | Encounter Summary ---
Author Organization [employer] Address [address] [place] [address] Care Team Providers Care Commercial Specialist Name Role Phone Unknown, Provider Primary Care Provider Unavaila Makayla Jaimes MD Primary Care Provider U Ana Cristina Woodall MD Primary Care Provider Simona Hinojosa MD Primary Care Prov ider Unknown, Provider Unavailable Unavailable Encounter Details Date Type Department Care Team (Late st Contact Info) Description 11/22/[address] [facility] Family Medicine [address] [place] [address]. 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 Gender Identity Not on file Sexual Orientation Not on file documented as of this encounter Last Filed Vital Signs Vital Sign Reading Time Taken Comments Blood Pressure 118/81 11/22/2016 12:00 AM CDT Pulse - - Temperature - - Respiratory Rate - - Oxygen Saturation - - Inhaled Oxygen Concentration - - Weight 52.3 kg (115 lb 4.8 oz) 11/23/19 17 12:00 AM CDT Height 162 cm (5' 3.78) 11/22/2016 12: 00 AM CDT Body Mass Index 20.78 12/17/2016 12:00 AM CDT Body Mass Index Percentile 43.20% 12/17 12:00 AM CDT Growth Chart: CDC (Girls, 2- 20 Years) documented in this encounter Progress Notes * Makayla Buckner MD - 12/17/2016 12:00 AM CDT Assessment 1. Abdominal bloating (787.3) (R14.0) Plan Discussed with Zhao that we would like to order tests for Celiac and for lactose intolerance. Advised her to be fasting for the testing. All questions and concerns were addressed. Zhao expressed understanding. Plan Orders Abdominal bloating Drawing Fee; Status:Complete; Done: [id number] Reason For Visit Stomach issues. History of Present Illness Zhao is an 16-year-old female who presents with her sister for evaluation of the above noted issue. Zhao says she feels bloated, and food does not sound good. She feels like she has diarrhea, but that just started. She has not noticed any particular foods causing it. She does burp but only when she is feeling really full. It does not really interfere with her activities. It does not bother her a lot right now, but she is concerned that it might bother her more in the future if it is not addressed now. 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 Current Meds 1. Alyacen 1-35 MG-MCG Oral Tablet; TAKE ONE TABLET BY MOUTH EVERY DAY DIRECTED; Therapy: 52Wfr9059 to (Last Rx:[id number]) Requested for: 67Bkv2801 Ordered 2. Fluticasone Propionate 50 MCG/ACT Nasal Suspension; USE 2 SPRAYS IN EACH NOSTRIL ONCE DAILY; Therapy: 38Vih9613 to (Last Rx:11May2015) Requested for: 11May2015 Ordered 3. Multi-Vitamin/Iron Oral Tablet; TAKE 1 TABLET ONCE DAILY; Therapy: 05Nsi1963 to (Evaluate:80Csm7238) Requested for: 36Xsi3527; Last Rx:[id number] Ordered 4. Vitamin D (Ergocalciferol) 68396 UNIT Oral Capsule; Take one capsule every other week x 3 months; Therapy: 21Neu6684 to (Evaluate:25Feb2017) Requested for: 71Ndv8662; Last Rx:[id number] Ordered 5. Vitron-C 65-125 MG Oral Tablet; TAKE 1 TABLET TWICE DAILY; Therapy: 89Nbr5126 to (Evaluate:26May2017) Requested for: 13Ahq5565; Last Rx:[id number] Ordered Allergies 1. No Known Drug Allergies Vitals Vital Signs Recorded: 21Thw4949 02:42PM Systolic 120 Diastolic 83 Heart Rate 94 Respiration 20 Temperature 98 F Height 160 cm 2-20 Stature Percentile 32 % Weight 53.2 kg 2-20 Weight Percentile 36 % BMI Calculated 20.78 BMI Percentile 43 % BSA Calculated 1.54 Physical Exam GENERAL: Zhao is a pleasant articulate 16-year-old. ABDOMEN:Somewhat bloated, soft, nontender. Signatures I, Ray DesaiS., am serving as a scribe to document services personally performed by Makayla Buckner M.D., F.A.A.P. based on my observation and the provider's statements. Electronically signed by : Makayla Buckner M.D.; Mar 21 2017 4:29PM FILTER CLEANER documented in this encounter H&P Notes * Makayla Buckner MD - 11/22/2016 12:00 AM CDT Assessment 1. Never smoked tobacco (V49.89) (Z78.9) 2. Vitamin D deficiency (268.9) (E55.9) 3. Abdominal pain (789.00) (R10.9) 4. Screening for genitourinary condition (V81.6) (Z13.89) 5. Menorrhagia (626.2) (N92.0) Plan Immunizations were discussed, risks and benefits, pros and cons. Patient will receive recommended immunizations today. Anticipatory guidance and safety issues were discussed. her abdominal symptoms and exam, we will get an x-ray. Mom did join us later in the visit, and the use of control pills to manage her periods was discussed. further details of the visit, please see the well child form in the patient's chart. Plan Orders Abdominal pain XR ABD Supine, UpR - 6007; Status:Active; Requested for:22Nov2016; Menorrhagia Alyacen 1-35 MG-MCG Oral Tablet; TAKE ONE TABLET BY MOUTH EVERY DAY DIRECTED CBC; Status:Resulted - Requires Verification; Done: 22Nov2016 11:42AM Drawing Fee; Status:Complete; Done: 22Nov2016 Ferritin; Status:Active; Requested for:22Nov2016; Iron And Iron Binding Cap; Status:Active; Requested for:22Nov2016; Screening for genitourinary condition UA - Culture if Indicated ([place]); Status:Resulted - Requires Verification; Done: 22Nov2016 11:42AM Vitamin D deficiency Vitamin D Total [facility]; Status:Active; Requested for:22Nov2016; Unlinked Gardasil 9 Intramuscular Suspension Meningo (Menactra) Reason For Visit 18-20 year well child exam. History of Present Illness ZHAO is a 16 year old female here for her wellness exam. Please see CTC form for further details. Patient is going to [place] for college. She is planning on studying nursing. She had a good schoolyear last year. does question her appetite. She does get some stomachaches. She just does not feel like eating. Shethinks maybe fatty foods make her stomach more upset. She does feel she may be constipated. says her periods are really heavy and painful. She needs to change pads three to four times during the day. She has horrible cramps. We did discuss being on the control pill can help with cramps, and she would know when her periods are starting. She takes ibuprofen for her cramps. It does notalways help. I explained she would not be taking this for control but rather to manage a medical problem. Her period lasts seven to eight days. She just finished it yesterday. was recently to the eye doctor. She does have regular dental appointments. feels her mood has been fine, but she is nervous about starting college. Current Meds 1. Fluticasone Propionate 50 MCG/ACT Nasal Suspension; USE 2 SPRAYS IN EACH NOSTRIL ONCE DAILY; Therapy: 15Hlr2890 to (Last Rx:11May2015) Requested for: 11May2015 Ordered 2. Multi-Vitamin/Iron Oral Tablet; TAKE 1 TABLET ONCE DAILY; Therapy: 75Fsi3709 to (Evaluate:27Tnl5374) Requested for: 71Upm2858; Last Rx:[id number] Ordered Allergies 1. No Known Drug Allergies Vitals Recorded: 22Nov2016 10:28AM Systolic 118 Diastolic 81 Heart Rate 96 Respiration 18 Temperature 98.9 F, Tympanic Height 162 cm 2-20 Stature Percentile 43 % Weight 52.3 kg 2-20 Weight Percentile 32 % BMI Calculated 19.93 BMI Percentile 32 % BSA Calculated 1.54 Vision 02/17 ou corrected Hearing normal bilat Physical Exam Growth is reviewed. Results/Data UA - Culture if Indicated ([place]) 22Nov2016 11:42AM Makayla Buckner Test Name Result Flag Reference pH 6.5 5.0-7.5 Specific [place] 1.014 1.005-1.030 Appearance CLEAR Color YELLOW Protein NEGATIVE NEGATIVE Glucose NEGATIVE NEGATIVE Ketone NEGATIVE NEGATIVE Bilirubin NEGATIVE NEGATIVE Blood NEGATIVE NEGATIVE Urobilinogen 0.2 EU/dL 0.2-1.0 Nitrite NEGATIVE NEGATIVE Leukocyte Esterase NEGATIVE NEGATIVE UA-WBC 0-4 /HPF 0-4 UA-RBC 0-4 /HPF 0-4 Epithelial Cells NEGATIVE NEGATIVE Bacteria NEGATIVE NEG - FEW Hyaline Casts NEGATIVE /LPF CBC 22Nov2016 11:42AM Makayla Buckner Test Name Result Flag Reference WBC 6.4 K/uL 4.0-11.0 RBC 4.76 M/uL 3.90-5.20 Hemoglobin 13.1 g/dl 11.8-15.8 Hematocrit 40.1 % 35-45 MCV 84.4 fL 81-99 MCH 27.6 pg L 28-33 MCHC 32.7 g/dl 32-36 Platelets 175 K/uL 130-450 RDW-CV 15.4 % 11.5-16.0 PLEASE NOTE REFERENCE RANGE CHANGED ON 11-01-2014 MPV 9.9 fL 6.5-11 Neutrophil - Absolute Count 4.3 K/uL 2.0-7.8 Lymphocyte - Absolute Count 1.4 K/uL 1.0-4.0 Monocyte - Absolute Count 0.5 K/uL 0.1-1.0 Eosinophil - Absolute Count 0.3 K/uL 0.0-0.7 Basophil - Absolute Count 0.0 K/uL 0.0-0.2 Neutrophils % 66.3 % H 34-64 Lymphocyte % 21.1 % L 25-45 Monocytes % 7.2 % H 0-5 Eosinophils % 4.7 % H 0-3 Basophils % 0.7 % 0-1 Signatures Nancie Marie P.D.S., am serving as a scribe to document services personally performed by Makayla Buckner M.D., F.A.A.P based on my observation and the provider's statements. Electronically signed by : Makayla Buckner M.D.; Mar 21 2017 4:29PM FILTER CLEANER documented in this encounter Miscellaneous Notes * Letter - Makayla Buckner MD - 06/12/2017 12:00 AM CST I have noticed that [...] letter. You are due for a Vitamin D Total at this time. Please call if you have any questions. Makayla Buckner MD [facility] Electronically signed by:Chasity Swartz Jun 12 2017 9:20AM FILTER CLEANER * Letter - Makayla Buckner MD - 05/09/2017 12:00 AM CST I have noticed that [...] are due for a Vit D, total at this time. Please call if you have any questions. Makayla Buckner MD [facility] Electronically signed by:RUEL GUTIERREZ May 13 2017 10:32AM FILTER CLEANER documented in this encounter Plan of Treatment Not on file documented as of this encounter Visit Diagnoses Not on filedocumented in this encounter Additional Health Concerns Infection Onset Date Last Indicated Resolved Time COVID-19 Rule Out 09/11/2024 09/11/2024 09/11/2024 9:11 PM CDT documented as of this encounter Care Teams Commercial Specialist Relationship Specialty Start Date End Date Unknown, Provider . [place] [id number] PCP - General 12/30/16 09/13/18 Makayla Buckner MD . [place] [address] PCP - General Pediatrics 09/14/18 12/14/20 Ana Cristina Fuentes MD [address] [facility] [address] [place] [phone] PCP - General Family Medicine 12/15/20 11/28/21 Simona Hinojosa MD [address] [facility] [place] [phone] PCP - General Family Medicine 11/29/21 Unknown, Provider . [place] [address] 09/14/18 documented as of this encounter Additional Source Comments PLEASE NOTE: Replies to this message will not be received.[facility] and [facility]
--- OUTSIDE RECORDS SUMMARY | 2025-01-06 17:45 | XMS_ITS | Encounter Summary ---
Author Organization [employer] Address [address] [place] [address] Care Team Providers Care Pattern Grader Supervisor Name Role Phone Unknown, Provider Primary Care Provider UnavailMakayla Staley MD Primary Care Provider U Ana Cristina Woodall MD Primary Care Provider Simona Hinojosa MD Primary Care Prov ider Unknown, Provider Unavailable Unavailable Encounter Details Date Type Department Care Team (Late st Contact Info) Description 04/10/2016 Historical Conversion [facility] Family Medicine [address] [place] [address]. 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 Gender Identity Not on file Sexual Orientation Not on file documented as of this encounter Last Filed Vital Signs Vital Sign Reading Time Taken Comments Blood Pressure 112/82 04/10/2016 12:00 AM FLOOR COVERING INSTALLER Pulse - - Temperature - - Respiratory Rate - - Oxygen Saturation - - Inhaled Oxygen Concentration - - Weight 47.8 kg (105 lb 6.1 oz) 04/10/2016 12:00 AM FLOOR COVERING INSTALLER Height - - Body Mass Index - - documented in this encounter Progress Notes * Matt Hernandez MD - 04/10/2016 12:00 AM CST [facility] : 2000 HX: [id number] DOS: 04/10/2016 SUBJECTIVE: This is a 15-year-old here with sore throat, runny nose, coughing and fever. The fever is subjective but she has had some chills. She says without muscle aches, but mother says she has had muscle aches. No rash, abdominal pain, vomiting, fever. MEDICATIONS: None ALLERGIES: None OBJECTIVE: VITAL SIGNS: Vital signs reviewed in Allscripts. Please see vitals tab for details. Stable, afebrile. GENERAL: Well nourished, well hydrated young female who is alert and interacts appropriately. HEENT: Head- atraumatic. Mouth- membranes moist. Throat- erythematous. NECK: No lymphadenopathy. HEART: Regular rate and rhythm. LUNGS: Clear to auscultation bilaterally. ABDOMEN: Soft, nontender. SKIN: Warm and smooth, no rash. LABORATORY: Quick strep and influenza A & B are negative. ASSESSMENT: Viral upper respiratory infection. PLAN: Treat symptomatically with Naproxen and Delsym cough syrup. Matt Hernandez M.D./baa-8 Electronically signed by:Matt Hernandez M.D. Apr 15 2016 7:03PM FLOOR COVERING INSTALLER documented in this encounter Plan of Treatment Not on file documented as of this encounter Visit Diagnoses Not on filedocumented in this encounter Additional Health Concerns Infection Onset Date Last Indicated Resolved Time COVID-19 Rule Out 09/11/2024 09/11/2024 09/11/2024 9:11 PM CDT documented as of this encounter Care Teams Pattern Grader Supervisor Relationship Specialty Start Date End Date Unknown, Provider . [place] [id number] PCP - General 12/30/16 09/13/18 Makayla Buckner MD . [place] [address] PCP - General Pediatrics 09/14/18 12/14/20 Ana Cristina Fuentes MD [address] [facility] [address] [place] [phone] PCP - General Family Medicine 12/15/20 11/28/21 Simona Hinojosa MD [address] [facility] [place] [phone] PCP - General Family Medicine 11/29/21 Unknown, Provider . [place] [address] 09/14/18 documented as of this encounter Additional Source Comments PLEASE NOTE: Replies to this message will not be received.[facility] and [facility]
--- OUTSIDE RECORDS SUMMARY | 2025-01-06 17:45 | XMS_ITS | Encounter Summary ---
Author Organization [employer] Address [address] [place] [address] Care Team Providers Care Electric Blanket Wirer Name Role Phone Unknown, Provider Primary Care Provider Unavaila Makayla Jaimes MD Primary Care Provider U Ana Cristina Woodall MD Primary Care Provider Simona Hinojosa MD Primary Care Prov ider Unknown, Provider Unavailable Unavailable Encounter Details Date Type Department Care Team (Late st Contact Info) Description 07/10/2017 Historical Conversion [facility] Family Medicine [address] [place] [address]. [facility] [place], [place] [phone] Makayla Buckner MD Social History Tobacco Use Types Packs/Day Years Used Date Smoking Tobacco: Never Assessed Comments Unknown Sex and Gender Information Value Date Recorded Sex Assigned at Not on file Legal Sex Female 4:10 PM BARISTA Gender Identity Not on file Sexual Orientation Not on file documented as of this encounter Last Filed Vital Signs Vital Sign Reading Time Taken Comments Blood Pressure 117/78 07/10/2017 12:00 AM BARISTA Pulse - - Temperature - - Respiratory Rate - - Oxygen Saturation - - Inhaled Oxygen Concentration - - Weight 52.8 kg (116 lb 6.5 oz) 07/11/19 18 12:00 AM BARISTA Height 161.5 cm (5' 3.58) 07/10/2017 1 2:00 AM BARISTA Body Mass Index 20.24 07/10/2017 12:00 AM BARISTA Body Mass Index Percentile 33.58% 07/10 12:00 AM BARISTA Growth Chart: [facility] (Girls, 2- 20 Years) documented in this encounter Plan of Treatment Not on file documented as of this encounter Visit Diagnoses Not on filedocumented in this encounter Additional Health Concerns Infection Onset Date Last Indicated Resolved Time COVID-19 Rule Out 09/11/2024 09/11/2024 09/11/2024 9:11 PM CDT documented as of this encounter Care Teams Electric Blanket Wirer Relationship Specialty Start Date End Date Unknown, Provider . [place] [address] PCP - General 12/30/16 09/13/18 Makayla Buckner MD . [place] [address] PCP - General Pediatrics 09/14/18 12/14/20 Ana Cristina Fuentes MD [address] [place] [address] [address] [place] [phone] PCP - General Family Medicine 12/15/20 11/28/21 Simona Hinojosa MD [address] [place] [address] [place] [phone] PCP - General Family Medicine 11/29/21 Unknown, Provider . [place] [address] 09/14/18 documented as of this encounter Additional Source Comments PLEASE NOTE: Replies to this message will not be received.[facility] and [facility]
--- OUTSIDE RECORDS SUMMARY | 2025-01-06 17:45 | XMS_ITS | Encounter Summary ---
Author Organization [employer] Address [address] [place] [address] Care Team Providers Care Russian Rubber Name Role Phone Unknown, Provider Primary Care Provider UnavailMakayla Staley MD Primary Care Provider U Ana Cristina Woodall MD Primary Care Provider Simona Hinojosa MD Primary Care Prov ider Unknown, Provider Unavailable Unavailable Encounter Details Date Type Department Care Team (Late st Contact Info) Description 11/06/2017 Historical Conversion [facility] [address] [place] [address]. 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 Gender Identity Not on file Sexual Orientation Not on file documented as of this encounter Last Filed Vital Signs Vital Sign Reading Time Taken Comments Blood Pressure 113/78 11/06/2017 12:00 AM CDT Pulse - - Temperature - - Respiratory Rate - - Oxygen Saturation - - Inhaled Oxygen Concentration - - Weight 48.9 kg (107 lb 12.9 oz) 018 12:00 AM CDT Height 160.6 cm (5' 3.23) 11/06/2017 1 2:00 AM CDT Body Mass Index 18.96 11/06/2017 12:00 AM CDT Body Mass Index Percentile 15.83% 11/06 12:00 AM CDT Growth Chart: CDC (Girls, 2- 20 Years) documented in this encounter H&P Notes * Laura Swartz MD - 11/06/2017 12:00 AM CDT Assessment 1. Encounter for preventive health examination (V70.0) (Z00.00) 2. Constipation (564.00) (K59.00) Jodie is an 16-year-old female who presented to clinic today for her 17 year CTC. She does have a history of lactose intolerance, however this has been managed well recently as she has been avoiding lactose-containing foods. She does occasionally use Lactaid as well. Her growth has been appropriatewith her BMI at the 16th percentile. She does report some concerns with constipation. We discussed making sure that she is well-hydrated, eating fruits, and also discussed the option of using MiraLAXas needed. She will give these things a try. She otherwise is due for her third HPV vaccine. She passed her hearing and vision screens. All other age-appropriate anticipatory guidance issues were disc ussed. She was in understanding of this plan and her questions were answered. Plan Orders Unlinked Gardasil 9 Intramuscular Suspension Reason For Visit 18-20 year well child exam. History of Present Illness Jodie is an 16-year-old female who presented to clinic today for her 19 year CTC. Jodie does have ahistory of H. pylori infection diagnosed in September of this year. She was able to complete treatment for this without any difficulty. She also does have an ongoing history of lactose intolerance. She reports that she has been very good at avoiding lactose containing foods recently and therefore does not have issues with bloating or diarrhea. She does state that she has been constipated for the last few days. She is wondering what she can take to help with her constipation. is studying at [employer]. 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 She reports that school is been going well. She does not have any other specific concerns for today's visit. Please see the CTC form for further details. Current Meds 1. No Reported Medications Recorded Allergies 1. No Known Drug Allergies Vitals Recorded: 40Tto1441 04:10PM Systolic 113, LUE, Sitting Diastolic 78, LUE, Sitting Heart Rate 102 Respiration 17 Temperature 97.5 F, Forehead Height 160.6 cm Weight 48.9 kg BMI Calculated 18.96 BSA Calculated 1.49 BMI Percentile 16 % 2-20 Stature Percentile 35 % 2-20 Weight Percentile 13 % Vision L: 1016 R: 02/17 with glasses. Hearing Passed all bilaterally. Signatures Electronically signed by : Laura Swartz M.D.; Nov 07 2017 5:50PM COMMERCIAL GREEN RETROFIT ARCHITECT documented in this encounter Miscellaneous Notes * Letter - Laura Swartz MD - 06/15/2018 12:00 AM CST I have noticed that [...] You are due for a Vitamin D at this time. Please call if you have any questions. Laura Swartz MD [facility] Electronically signed by:Chasity Swartz Jun 15 2018 9:04AM COMMERCIAL GREEN RETROFIT ARCHITECT * Letter - Laura Swartz MD - 05/21/2018 12:00 AM CST I have noticed that [...] You are due for a Vitamin D at this time. Please call if you have any questions. Laura Swartz MD [facility] Electronically signed by:Chasity Swartz May 21 2018 9:34AM COMMERCIAL GREEN RETROFIT ARCHITECT * Letter - Laura Swartz MD - 04/27/2018 12:00 AM CST I have noticed that [...] You are due for a Vitamin D at this time. Please call if you have any questions. Laura Swartz MD [facility] Electronically signed by:Chasity Swartz Apr 27 2018 8:40AM COMMERCIAL GREEN RETROFIT ARCHITECT * Letter - Laura Swartz MD - 11/19/2017 12:00 AM CDT I have noticed that [...] letter. You are due for a Vit D at this time. Please call if you have any questions. Laura Swartz MD [facility] Electronically signed by:RUEL GUTIERREZ Apr 02 2018 9:16AM COMMERCIAL GREEN RETROFIT ARCHITECT documented in this encounter Plan of Treatment Not on file documented as of this encounter Visit Diagnoses Not on filedocumented in this encounter Additional Health Concerns Infection Onset Date Last Indicated Resolved Time COVID-19 Rule Out 09/11/2024 09/11/2024 09/11/2024 9:11 PM CDT documented as of this encounter Care Teams Russian Rubber Relationship Specialty Start Date End Date Unknown, Provider . [facility] [id number] PCP - General 12/30/16 09/13/18 Makayla Buckner MD . [facility] [place] [id number] PCP - General Pediatrics 09/14/18 12/14/20 Ana Cristina Fuentes MD [address] [facility] [address] [facility] [facility] [phone] PCP - General Family Medicine 12/15/20 11/28/21 Simona Hinojosa MD [address] [place] [address] [facility] [phone] PCP - General Family Medicine 11/29/21 Unknown, Provider . [place] [id number] 09/14/18 documented as of this encounter Additional Source Comments PLEASE NOTE: Replies to this message will not be received.[facility] and [facility]
--- OUTSIDE RECORDS SUMMARY | 2025-01-06 17:45 | XMS_ITS | Encounter Summary ---
Author Organization [employer] Address [address] [place] [address] Care Team Providers Care Mailroom Courier Name Role Phone Unknown, Provider Primary Care Provider Makayla Altamirano MD Primary Care Provider U Ana Cristina Woodall MD Primary Care Provider Simona Hinojosa MD Primary Care Prov ider Unknown, Provider Unavailable Unavailable Encounter Details Date Type Department Care Team (Late st Contact Info) Description 12/21/2015 Historical Conversion [facility] [address] [place] [address]. 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 Gender Identity Not on file Sexual Orientation Not on file documented as of this encounter Last Filed Vital Signs Vital Sign Reading Time Taken Comments Blood Pressure 107/74 12/21/2015 12:00 AM CDT Pulse - - Temperature - - Respiratory Rate - - Oxygen Saturation - - Inhaled Oxygen Concentration - - Weight 47 kg (103 lb 9.9 oz) 12/21/2015 12:00 AM CDT Height - - Body Mass Index - - documented in this encounter Progress Notes * Brandon Morgan - 12/21/2015 12:00 AM CDT [facility]ENT [facility]ARE [facility] : 2000 HX: [id number] DOS: 12/21/2015 SUBJECTIVE: Patient seen in Urgent Care with some soreness of her right great toe. She states it has been oozing a bit of pus and has been bothering for a couple of weeks. PAST MEDICAL HISTORY: No allergies. She is generally healthy overall. REVIEW OF SYSTEMS: Negative for any fever or chills. EXAMINATION: Vitals signs reviewed in Allscripts. Please see vitals tab for details. Afebrile. She does have some ingrowing of the lateral plate of the great nail, but there is some cellulitis aroundit. The skin really does pull back pretty well and there is no deeply imbedded nail spike or any granulation tissue. ASSESSMENT: Mildly ingrown toenail. PLAN: Cephalexin 500 t.i.d. and warm soaks recommended as well as pushing the skin back aggressively after soaking. Hopefully, this will resolve the issue. If not, she probably needs her toenail ridged out. She could return to Urgent Care or go to podiatry with this. Brandon Morgan M.D./[facility] 24 Electronically signed by:Brandon Morgan M.D. Jan 06 2016 8:51AM PATTERN SETTER documented in this encounter Plan of Treatment Not on file documented as of this encounter Visit Diagnoses Not on filedocumented in this encounter Additional Health Concerns Infection Onset Date Last Indicated Resolved Time COVID-19 Rule Out 09/11/2024 09/11/2024 09/11/2024 9:11 PM CDT documented as of this encounter Care Teams Mailroom Courier Relationship Specialty Start Date End Date Unknown, Provider . [facility] [place] [id number] PCP - General 12/30/16 09/13/18 Makayla Buckner MD . [facility] [place] [id number] PCP - General Pediatrics 09/14/18 12/14/20 Ana Cristina Fuentes MD [address] [place] [address] [address] [facility] [phone] PCP - General Family Medicine 12/15/20 11/28/21 Simona Hinojosa MD [address] [facility] [phone] PCP - General Family Medicine 11/29/21 Unknown, Provider . [facility] [place] [id number] 09/14/18 documented as of this encounter Additional Source Comments PLEASE NOTE: Replies to this message will not be received.[facility] and [facility]
--- OUTSIDE RECORDS SUMMARY | 2025-01-06 17:45 | XMS_ITS | Encounter Summary ---
Author Organization [employer] Address [address] [place] [address] Care Team Providers Care Multiple Games Dealer Name Role Phone Unknown, Provider Primary Care Provider UnavailMakayla Staley MD Primary Care Provider U Ana Cristina Woodall MD Primary Care Provider Simona Hinojosa MD Primary Care Prov ider Unknown, Provider Unavailable Unavailable Encounter Details Date Type Department Care Team (Late st Contact Info) Description 10/19/2015 Historical Conversion [facility] [address] [place] [address]. 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 HISTORY OF PRESENT ILLNESS: Zhao is a delightful 14-year-old Citizen [place] girl who comes to the clinic today by herself with verbal permission from her parent on file. She has a rash under her right armpit, which started about five days ago. Rash looks like little pimples and then started to spread and seems like there were little blisters or rubbing matthews, it is itchy and is only in that location anddoes not seem to go away, get worse over the first three days and then yesterday and today it has been pretty much the same. No fever or chills. No rashes any other place of the body. REVIEW OF SYSTEMS: As per HPI, otherwise negative. PHYSICAL EXAM: VITAL SIGNS: Vital signs reviewed Allscripts. Please see vitals tab for details. GENERAL: Patient is in no acute distress. Alert and orientated. HEAD: Normocephalic, atraumatic. EYES: Pupils equal, round and reactive. Sclera nonicteric. Conjunctiva noninjected. EARS: Normal tympanic membranes bilaterally. MOUTH: Mucus membranes pink and moist. THROAT: No redness, exudate or postnasal drip. NECK: Supple, no lymphadenopathy. No thyroid enlargement. LUNGS: Clear to auscultation bilaterally. HEART: S1, S2 clear without murmur. SKIN: Right armpit is red and swollen with multiple papules with some areas where there are blisters that have peeled off revealing underlying redness. IMPRESSION: Cellulitis of the right armpit. PLAN: Keflex 500 mg one capsule four times a day for seven days. Desitin Cream, apply to armpit twoto three times a day until skin lesions improve. Present to clinic if not better or worse in two tothree days. Naomi Lemon M.D./[facility]17 Electronically signed by:Naomi Lemon M.D. Oct 21 2015 6:18PM DOG OBEDIENCE INSTRUCTOR documented in this encounter Plan of Treatment Not on file documented as of this encounter Visit Diagnoses Not on filedocumented in this encounter Additional Health Concerns Infection Onset Date Last Indicated Resolved Time COVID-19 Rule Out 09/11/2024 09/11/2024 09/11/2024 9:11 PM CDT documented as of this encounter Care Teams Multiple Games Dealer Relationship Specialty Start Date End Date Unknown, Provider . [facility] [place] [id number] PCP - General 12/30/16 09/13/18 Makayla Buckner MD . [facility] [place] [id number] PCP - General Pediatrics 09/14/18 12/14/20 Ana Cristina Fuentes MD [address] [facility] [address] [place] [phone] PCP - General Family Medicine 12/15/20 11/28/21 Simona Hinojosa MD [address] [place] [address] [facility] [phone] PCP - General Family Medicine 11/29/21 Unknown, Provider . [facility] [place] [id number] 09/14/18 documented as of this encounter Additional Source Comments PLEASE NOTE: Replies to this message will not be received.[facility] and [facility]
== END 2025-01-06 18:41 | disposition home or self-care (01) ==
LOC: ED 17:43
PROVIDERS: Emergency Provider Family Medicine
DX: R11.0 Nausea (principal); F10.10 Alcohol abuse, uncomplicated
CPT/HCPCS: 96374; 99283; 99284; J2405; J7030